=== PATIENT | female | born 1985 | race Caucasian/White ===

== ENCOUNTER 2018-02-21 18:59 | Emergency (ER) | payer MEDICAID ==
[2018-02-21] MEDS: KETOROLAC 15 MG INJ IM (19:55)
[2018-02-21] MEDS: ONDANSETRON (ODT) 4 MG TAB ODT (20:15)
[2018-02-21] MEDS: MECLIZINE 12.5 MG TAB PO (20:15)
== END 2018-02-21 20:50 | disposition home or self-care (01) ==
LOC: FTE 18:59
DX: R42 Dizziness and giddiness (principal)
CPT/HCPCS: 96372; 99284-25; J1885